=== PATIENT | male | born 1980 | race Caucasian/White ===

== ENCOUNTER 2016-07-08 21:29 | Emergency (ER) | payer OTHER ==
--- NOTE | 2016-07-08 22:56 | ED NURSING NOTES ---
Clinical Report - Nurses [facility] [address] [place] [address] 07/08/2016 21:29 Patient: SJ DONALDSON TRIAGE Triage time 21:40 Jul 08 2016. Acuity: LEVEL 3. Chief Complaint: FALL (fall from sitting on a table). 21:43 07/08/16. SEPSIS SCREEN: Sepsis Screen: negative. Negative (no infection suspected/documented). PO COMA SCORE: [place] Coma Scale: 15- eyes open spontaneously (4); best verbal response- oriented x 4 (5); best motor response- obeys commands (6). --21:43 Esperanza Lawson 21:40 07/08/16. BP: 122/86. HR: 95. RR: 20. O2 saturation: 96% on room air. Temp: 98 F (oral). Pain level now: 11/01. --21:43 Esperanza Lawson. Weight: 113.3 kg stated. Height/Length: 71 inches Per Patient. BMI: 34.9. --21:42 Esperanza Lawson. Medications Tumeric. --21:42 Ida Lawsonh Advil Oral. --21:42 Esperanza Lawson. Allergies No Known Drug Allergy. --21:42 Esperanza Lawson. History Arrived by private vehicle. Historian: patient. Accompanied by family. Location of injuries: left breast. This occurred just prior to arrival. Occurred at home. ( Patient reports he was sitting on a table and fell onto his left rib. He reports a popping noise and pain.). No loss of consciousness. No alteration in mental status or dizziness. 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 PAST MEDICAL HX: Tetanus status: up-to-date. Immunizations: up-to-date. SOCIAL HX: Smoker- current status unknown (Vapes). No alcohol use or drug use. No infectious disease exposure. ABUSE ASSESSMENT: No report of abuse. FALL RISK ASSESSMENT: Fall risk assessment completed. No fall risk identified. NUTRITIONAL RISK ASSESSMENT: The nutritional risk assessment revealed no deficiencies. FUNCTIONAL ASSESSMENT: Functional assessment: no impairments noted. LEARNING NEEDS ASSESSMENT: The learning needs assessment revealed no barriers. SKIN INTEGRITY ASSESSMENT: Skin integrity risk assessment completed. No skin integrity risk identified. --21:43 Esperanza Lawson. ADDITIONAL SURGERIES: Eye innoculated . --21:43 Esperanza Lawson. Interventions ID band on patient. To treatment room. --21:43 Esperanza Lawson. PHYSICAL ASSESSMENT Ambulatory to room. Patient gowned. GENERAL / NEURO / PSYCH: Alert. Oriented X 4. Appears in pain. RESPIRATORY: Respirations not labored. CVS: Left breast area : tenderness. GI / : Abdomen soft and nontender. SKIN: Skin intact. Skin is warm and dry. --21:43 Esperanza Lawson. NURSING PROGRESS NOTES Cold pack applied. Patient gowned. Reassurance given to the patient. Two patient identifiers checked. Call light placed in reach. Side rails up x 1. Bed placed in lowest position. Brakes of bed on. Patient ready for evaluation- chart flagged and ED physician notified. --21:44 Esperanza Lawson 21:59 07/08/2016 Percocet (Oxycodone-Acetaminophen) PO 5/325 mg Tablets 1 tab given. Allergies verified, confirmed 5 rights and sedative warning given to the patient. --21:59 Gogo Mendoza R.N. 22:33 07/08/16. BP: 115/79. HR: 83. RR: 20. O2 saturation: 97% on room air. Pain level now: 5/10. --22:34 Renny Esperanza Patient transported to radiology by wheelchair with tech. (22:35 Jul 08 2016). --22:35 Renny Esperanza. DISPOSITION / DISCHARGE 23:00 07/08/16. Condition at departure: stable. The goals identified in the patient's plan of care were met. No learning barriers present. Discharge instructions provided and reviewed with the patient and spouse. Reviewed warnings (Do not drive while on sedative medications). Reviewed medication(s) side effects, precautions, dosing and course information. Prescription(s) given to the patient. Patient and spouse verbalized understanding. Written instructions provided in Yoruba. ( Follow up with PCP in one week. Ice affected area and take anti-inflammatories as needed.). The patient was discharged by the physician occupational therapist's assistant. He was discharged home and accompanied by spouse. He left the Emergency Department ambulatory and via private vehicle. Spouse driving. FALL RISK ASSESSMENT: Fall risk assessment completed. No fall risk identified. --00:29 Esperanza Lawson 23:00 07/08/16. BP: 122/85. HR: 77. RR: 20. O2 saturation: 98% on room air. Temp: deferred. Pain level now: 11/01. --00:29 Esperanza Lawson. Locked/Released at 07/09/2016 0:29 by Esperanza Lawson,
--- NOTE | 2016-07-08 22:56 | ED CLINICAL REPORT ---
Clinical Report - Physicians/Mid Levels [facility] [address] [place] [address] 07/08/2016 21:29 [id number] Time Seen: 21:49 Jul 08 2016. Arrived- By private vehicle. Historian- patient and family. HISTORY OF PRESENT ILLNESS Chief Complaint: FALL. Location of injuries- (chest). The injury occurred just prior to arrival. Fell. Occurred at home. The patient complains of moderate pain. No blow to the head, neck pain or loss of consciousness. (Patient reports falling forward from a table onto his face and sustaining injury to his left anterior chest.). REVIEW OF SYSTEMS No loss of vision, chest pain or laceration. All systems otherwise negative, except as recorded above. SOCIAL HISTORY Smoker- current status unknown. No alcohol use or drug use. ADDITIONAL NOTES The nursing notes have been reviewed. PHYSICAL EXAM Vital Signs: 07/08/2016 21:40 BP: 122/86. HR: 95. RR: 20. O2 saturation: 96%. Temp: 98 F. Pain level now: 7/10. Appearance: Alert. No acute distress. No backboard or C-collar. Head: Head non-tender. Eyes: Pupils equal, round and reactive to light. No ocular injury. Neck: Non-tender. No vertebral tenderness. Posterior neck: No tenderness or swelling. CVS: Heart sounds normal. Pulses normal. Respiratory: Chest wall: moderate tenderness located in the upper, middle, left and anterior chest. No abrasion. No puncture wound. Breath sounds normal. Chest nontender. No chest wall injury. Abdomen: No visible injury. No abdominal tenderness. The bowel sounds are not abnormal. Back: No tenderness. No tenderness. Neuro: Syd Coma Scale: 15- eyes open spontaneously (4); best verbal response- oriented x 3 (5); best motor response- obeys commands (6). Oriented X 3. LABS, X-RAYS, AND EKG Chest X-ray: No rib fractures. (neg rib series.). PROGRESS AND PROCEDURES Course of Care: abd soft, no signs of contusion/ penetrating injury, cxr neg as reviwed with DR. Paz. No signs of new pneumothorax/ flail multiple rib fx. Pt stable. Mechanical fall. No injury to extremities or neck/ head. Discussed possible small fx/ vs contusion w/ patient. Patient/family counseled. Disposition: Discharged. Condition: good. CLINICAL IMPRESSION Contusion to the left anterior chest. INSTRUCTIONS Apply ice. Prescription Medications: Hydrocodone/APAP 7.5mg / 325mg: take 1 orally every 6 hours as needed for pain. Dispense fifteen (15). No refill. Follow-up: Follow up with your doctor in one week. (Electronically signed by Suni Flower P.A.-C 07/08/2016 22:56)
--- NOTE | 2016-07-08 22:56 | ED NURSING NOTES ---
Clinical Report - Nurses [facility] [address] [place] [address] 07/08/2016 21:29 Patient: SJ DONALDSON TRIAGE Triage time 21:40 Jul 08 2016. Acuity: LEVEL 3. Chief Complaint: FALL (fall from sitting on a table). 21:43 07/08/16. SEPSIS SCREEN: Sepsis Screen: negative. Negative (no infection suspected/documented). PO COMA SCORE: [place] Coma Scale: 15- eyes open spontaneously (4); best verbal response- oriented x 4 (5); best motor response- obeys commands (6). --21:43 Esperanza Lawson 21:40 07/08/16. BP: 122/86. HR: 95. RR: 20. O2 saturation: 96% on room air. Temp: 98 F (oral). Pain level now: 11/01. --21:43 Esperanza Lawson. Weight: 113.3 kg stated. Height/Length: 71 inches Per Patient. BMI: 34.9. --21:42 Esperanza Lawson. Medications Tumeric. --21:42 Ida Lawsonh Advil Oral. --21:42 Esperanza Lawson. Allergies No Known Drug Allergy. --21:42 Esperanza Lawson. History Arrived by private vehicle. Historian: patient. Accompanied by family. Location of injuries: left breast. This occurred just prior to arrival. Occurred at home. ( Patient reports he was sitting on a table and fell onto his left rib. He reports a popping noise and pain.). No loss of consciousness. No alteration in mental status or dizziness. 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 PAST MEDICAL HX: Tetanus status: up-to-date. Immunizations: up-to-date. SOCIAL HX: Smoker- current status unknown (Vapes). No alcohol use or drug use. No infectious disease exposure. ABUSE ASSESSMENT: No report of abuse. FALL RISK ASSESSMENT: Fall risk assessment completed. No fall risk identified. NUTRITIONAL RISK ASSESSMENT: The nutritional risk assessment revealed no deficiencies. FUNCTIONAL ASSESSMENT: Functional assessment: no impairments noted. LEARNING NEEDS ASSESSMENT: The learning needs assessment revealed no barriers. SKIN INTEGRITY ASSESSMENT: Skin integrity risk assessment completed. No skin integrity risk identified. --21:43 Esperanza Lawson. ADDITIONAL SURGERIES: Eye innoculated . --21:43 Esperanza Lawson. Interventions ID band on patient. To treatment room. --21:43 Esperanza Lawson. PHYSICAL ASSESSMENT Ambulatory to room. Patient gowned. GENERAL / NEURO / PSYCH: Alert. Oriented X 4. Appears in pain. RESPIRATORY: Respirations not labored. CVS: Left breast area : tenderness. GI / : Abdomen soft and nontender. SKIN: Skin intact. Skin is warm and dry. --21:43 Esperanza Lawson. NURSING PROGRESS NOTES Cold pack applied. Patient gowned. Reassurance given to the patient. Two patient identifiers checked. Call light placed in reach. Side rails up x 1. Bed placed in lowest position. Brakes of bed on. Patient ready for evaluation- chart flagged and ED physician notified. --21:44 Esperanza Lawson 21:59 07/08/2016 Percocet (Oxycodone-Acetaminophen) PO 5/325 mg Tablets 1 tab given. Allergies verified, confirmed 5 rights and sedative warning given to the patient. --21:59 Gogo Mendoza R.N. 22:33 07/08/16. BP: 115/79. HR: 83. RR: 20. O2 saturation: 97% on room air. Pain level now: 5/10. --22:34 Renny Esperanza Patient transported to radiology by wheelchair with tech. (22:35 Jul 08 2016). --22:35 Renny Esperanza. DISPOSITION / DISCHARGE 23:00 07/08/16. Condition at departure: stable. The goals identified in the patient's plan of care were met. No learning barriers present. Discharge instructions provided and reviewed with the patient and spouse. Reviewed warnings (Do not drive while on sedative medications). Reviewed medication(s) side effects, precautions, dosing and course information. Prescription(s) given to the patient. Patient and spouse verbalized understanding. Written instructions provided in Telugu. ( Follow up with PCP in one week. Ice affected area and take anti-inflammatories as needed.). The patient was discharged by the physician assistant professor of biology. He was discharged home and accompanied by spouse. He left the Emergency Department ambulatory and via private vehicle. Spouse driving. FALL RISK ASSESSMENT: Fall risk assessment completed. No fall risk identified. --00:29 Esperanza Lawson 23:00 07/08/16. BP: 122/85. HR: 77. RR: 20. O2 saturation: 98% on room air. Temp: deferred. Pain level now: 11/01. --00:29 Esperanza Lawson. Locked/Released at 07/09/2016 0:29 by Esperanza Lawson,
--- NOTE | 2016-07-08 22:56 | ED ORDER SUMMARY ---
..... Patient: SJ DONALDSON OrderSheet [facility] VisitID: [id number] [address] [place] [address] 36y, M Registration Date/Time: 07/08/2016 ORDER SHEET Weight: 113.3 kg (stated) Allergies: No Known Drug Allergy GENERAL ORDERS: Ribs Unilat w PA Chest Left Urgent (21:47 07/08/2016 Maddy Deras.A.-C) (Ack 21:48 ALawrence ER Tech1) (22:50 MCampbell) MEDICATION ORDERS: Percocet PO 5/325 mg (HIGH ALERT MEDICATION, NOW) (21:47 07/08/2016 Maddy Deras.A.-C) (Ack 21:49 HSoule) (21:59 KKnebel R.N.) IV FLUIDS: ORDER SHEET NOTES: [Electronically signed by Suni Flower P.A.-C (22:56 07/08/2016)] [Electronically signed by Esperanza Lawson (00:29 07/09/2016)] [Electronically locked/signed by Esperanza Lawson (00:29 07/09/2016)]
--- NOTE | 2016-07-08 22:56 | ED ORDER SUMMARY ---
..... Patient: SJ DONALDSON OrderSheet [facility] VisitID: [id number] [address] [place] [address] 36y, M Registration Date/Time: 07/08/2016 ORDER SHEET Weight: 113.3 kg (stated) Allergies: No Known Drug Allergy GENERAL ORDERS: Ribs Unilat w PA Chest Left Urgent (21:47 07/08/2016 Maddy Deras.A.-C) (Ack 21:48 ALawrence ER Tech1) (22:50 MCampbell) MEDICATION ORDERS: Percocet PO 5/325 mg (HIGH ALERT MEDICATION, NOW) (21:47 07/08/2016 Maddy eDras.A.-C) (Ack 21:49 HSoule) (21:59 KKnebel R.N.) IV FLUIDS: ORDER SHEET NOTES: [Electronically signed by Suni Flower P.A.-C (22:56 07/08/2016)] [Electronically signed by Esperanza Lawson (00:29 07/09/2016)] [Electronically locked/signed by Esperanza Lawson (00:29 07/09/2016)]
--- NOTE | 2016-07-08 22:56 | ED CLINICAL REPORT ---
Clinical Report - Physicians/Mid Levels [facility] [address] [place] [address] 07/08/2016 21:29 [id number] Time Seen: 21:49 Jul 08 2016. Arrived- By private vehicle. Historian- patient and family. HISTORY OF PRESENT ILLNESS Chief Complaint: FALL. Location of injuries- (chest). The injury occurred just prior to arrival. Fell. Occurred at home. The patient complains of moderate pain. No blow to the head, neck pain or loss of consciousness. (Patient reports falling forward from a table onto his face and sustaining injury to his left anterior chest.). REVIEW OF SYSTEMS No loss of vision, chest pain or laceration. All systems otherwise negative, except as recorded above. SOCIAL HISTORY Smoker- current status unknown. No alcohol use or drug use. ADDITIONAL NOTES The nursing notes have been reviewed. PHYSICAL EXAM Vital Signs: 07/08/2016 21:40 BP: 122/86. HR: 95. RR: 20. O2 saturation: 96%. Temp: 98 F. Pain level now: 7/10. Appearance: Alert. No acute distress. No backboard or C-collar. Head: Head non-tender. Eyes: Pupils equal, round and reactive to light. No ocular injury. Neck: Non-tender. No vertebral tenderness. Posterior neck: No tenderness or swelling. CVS: Heart sounds normal. Pulses normal. Respiratory: Chest wall: moderate tenderness located in the upper, middle, left and anterior chest. No abrasion. No puncture wound. Breath sounds normal. Chest nontender. No chest wall injury. Abdomen: No visible injury. No abdominal tenderness. The bowel sounds are not abnormal. Back: No tenderness. No tenderness. Neuro: Syd Coma Scale: 15- eyes open spontaneously (4); best verbal response- oriented x 3 (5); best motor response- obeys commands (6). Oriented X 3. LABS, X-RAYS, AND EKG Chest X-ray: No rib fractures. (neg rib series.). PROGRESS AND PROCEDURES Course of Care: abd soft, no signs of contusion/ penetrating injury, cxr neg as reviwed with DR. Paz. No signs of new pneumothorax/ flail multiple rib fx. Pt stable. Mechanical fall. No injury to extremities or neck/ head. Discussed possible small fx/ vs contusion w/ patient. Patient/family counseled. Disposition: Discharged. Condition: good. CLINICAL IMPRESSION Contusion to the left anterior chest. INSTRUCTIONS Apply ice. Prescription Medications: Hydrocodone/APAP 7.5mg / 325mg: take 1 orally every 6 hours as needed for pain. Dispense fifteen (15). No refill. Follow-up: Follow up with your doctor in one week. (Electronically signed by Suni Flower P.A.-C 07/08/2016 22:56)
--- NOTE | 2016-07-08 23:13 | DIAGNOSTIC IMAGING REPORT ---
PROCEDURE: XR RIBS UNILAT W/PA CHEST-LT INDICATION: TRAUMA/INJURY TECHNIQUE: Three views of the left ribs with single PA view chest. COMPARISON: None. FINDINGS: LEFT RIBS: No fracture or suspicious osseous lesion. CHEST: Lungs are clear. Heart size, mediastinum and pulmonary vessels are normal. Bony thorax is unremarkable. IMPRESSION: 1. Negative chest and left ribs.
--- NOTE | 2016-07-09 00:30 | ED MAR SUMMARY ---
..... Medication Administration Record [facility] [address] [place] [address] Patient: SJ DONALDSON Visit ID: [id number] 36y, M Weight: 113.3 kg Height/Length: 71 in BMI: 34.9 ALLERGIES: No Known Drug Allergy Given 21:59 07/08/2016 Gogo Mendoza R.N. Medication Administered: PERCOCET [PO] (OXYCODONE-ACETAMINOPHEN), Dose: 1 tab 5/325 mg Tablets PO. Medication Ordered: Percocet PO 5/325 mg (HIGH ALERT MEDICATION, NOW).
--- NOTE | 2016-07-09 00:30 | ED MED RECONCILIATION SUMMARY ---
Patient: SJ DONALDSON Medication Reconciliation Report [facility] VisitID: [id number] [address] [place] [address] 36y, M Registration Date/Time: 07/08/2016 Weight: 113.3 kg Height/Length: 71 in. BMI: 34.9 ALLERGIES: No Known Drug Allergy The patient's Home Medications are listed below: THE FOLLOWING MEDICATIONS NEED TO BE RECONCILED: Advil Oral Tumeric The source(s) of the original Home Medication information: Not obtained. The following Medications were given to the patient in the Emergency Department: Percocet [PO] PO 1 tab, administered: 07/08/2016 9:59:00 PM The following Medications were prescribed to the patient: Hydrocodone/APAP 7.5mg / 325mg: take 1 orally every 6 hours as needed for pain. Dispense fifteen (15). No refill. -- Suni Flower, PBryanABryan-C
--- NOTE | 2016-07-09 00:30 | ED MED RECONCILIATION SUMMARY ---
Patient: SJ DONALDSON Medication Reconciliation Report [facility] VisitID: [id number] [address] [place] [address] 36y, M Registration Date/Time: 07/08/2016 Weight: 113.3 kg Height/Length: 71 in. BMI: 34.9 ALLERGIES: No Known Drug Allergy The patient's Home Medications are listed below: THE FOLLOWING MEDICATIONS NEED TO BE RECONCILED: Advil Oral Tumeric The source(s) of the original Home Medication information: Not obtained. The following Medications were given to the patient in the Emergency Department: Percocet [PO] PO 1 tab, administered: 07/08/2016 9:59:00 PM The following Medications were prescribed to the patient: Hydrocodone/APAP 7.5mg / 325mg: take 1 orally every 6 hours as needed for pain. Dispense fifteen (15). No refill. -- Suni Flower, PBryanABryan-C
--- NOTE | 2016-07-09 00:30 | ED MAR SUMMARY ---
..... Medication Administration Record [facility] [address] [place] [address] Patient: SJ DONALDSON Visit ID: [id number] 36y, M Weight: 113.3 kg Height/Length: 71 in BMI: 34.9 ALLERGIES: No Known Drug Allergy Given 21:59 07/08/2016 Gogo Mendoza R.N. Medication Administered: PERCOCET [PO] (OXYCODONE-ACETAMINOPHEN), Dose: 1 tab 5/325 mg Tablets PO. Medication Ordered: Percocet PO 5/325 mg (HIGH ALERT MEDICATION, NOW).
--- NOTE | 2016-07-09 00:30 | ED DISCHARGE INSTRUCTIONS ---
Patient: SJ DONALDSON General Instructions [facility] VisitID: [id number] [place] [address] 36y, M Registration Date/Time: 07/08/2016 Contusion to the left anterior chest. INSTRUCTIONS Apply ice. Prescription Medications: Hydrocodone/APAP 7.5mg / 325mg: take 1 orally every 6 hours as needed for pain. Dispense fifteen (15). No refill. Follow-up: Follow up with your doctor in one week. ADDITIONAL INFORMATION Chest Contusion Acontusion is a bruise to the skin, muscle or ribs. It may cause pain, tenderness, swelling and a purplish discoloration. Contusions take a few days to a few weeks to heal. Home Care: Rest. You should not be doing any heavy lifting or strenuous exertion, or any activity that causes pain. You may use acetaminophen (Tylenol) or ibuprofen (Motrin, Advil) to control pain, unless another pain medicine was prescribed. [ NOTE: If you have chronic liver or kidney disease or ever had a stomach ulcer or GI bleeding, talk with your doctor before using these medicines.] Follow Up with your doctor during the next week or as directed. Get Prompt Medical Attention if any of the following occur: Shortness of breath Increasing chest pain with breathing Dizziness, weakness or fainting New or worsening of abdominal pain Fever of 100.4F (38C) or higher, or as directed by your healthcare provider Hydrocodone Bitartrate, Acetaminophen Oral tablet What is this medicine? ACETAMINOPHEN; HYDROCODONE (a set a STACIA willy fen; rylan droe KOE done) is a pain reliever. It is used to treat mild to moderate pain. How should I use this medicine? Take this medicine by mouth. Swallow it with a full glass of water. Follow the directions on the prescription label. If the medicine upsets your stomach, take the medicine with food or milk. Do not take more than you are told to take. Talk to your plate washer regarding the use of this medicine in children. This medicine is not approved for use in children. What side effects may I notice from receiving this medicine? Side effects that you should report to your doctor or health skin care technician as soon as possible: allergic reactions like skin rash, itching or hives, swelling of the face, lips, or tongue breathing problems confusion feeling faint or lightheaded, falls stomach pain yellowing of the eyes or skin Side effects that usually do not require medical attention (report to your doctor or health skin care technician if they continue or are bothersome): nausea, vomiting stomach upset What may interact with this medicine? alcohol antihistamines isoniazid medicines for depression, anxiety, or psychotic disturbances medicines for sleep muscle relaxants naltrexone narcotic medicines (opiates) for pain phenobarbital ritonavir tramadol What if I miss a dose? If you miss a dose, take it as soon as you can. If it is almost time for your next dose, take only that dose. Do not take double or extra doses. Where should I keep my medicine? Keep out of the reach of children. This medicine can be abused. Keep your medicine in a safe place to protect it from theft. Do not share this medicine with anyone. Selling or giving away this medicine is dangerous and against the law. Store at room temperature between 15 and 30 degrees C (59 and 86 degrees F). Protect from light. Keep container tightly closed. Throw away any unused medicine after the expiration date. Discard unused medicine and used packaging carefully. Pets and children can be harmed if they find used or lost packages. What should I tell my health care provider before I take this medicine? They need to know if you have any of these conditions: brain tumor Crohn's disease, inflammatory bowel disease, or ulcerative colitis drink more than 3 alcohol-containing drinks per day drug abuse or addiction head injury heart or circulation problems kidney disease or problems going to the bathroom liver disease lung disease, asthma, or breathing problems an unusual or allergic reaction to acetaminophen, hydrocodone, other opioid analgesics, other medicines, foods, dyes, or preservatives or trying to get breast-feeding What should I watch for while using this medicine? Tell your doctor or health skin care technician if your pain does not go away, if it gets worse, or if you have new or a different type of pain. You may develop tolerance to the medicine. Tolerance means that you will need a higher dose of the medicine for pain relief. Tolerance is normal and is expected if you take the medicine for a long time. Do not suddenly stop taking your medicine because you may develop a severe reaction. Your body becomes used to the medicine. This does NOT mean you are addicted. Addiction is a behavior related to getting and using a drug for a non-medical reason. If you have pain, you have a medical reason to take pain medicine. Your doctor will tell you how much medicine to take. If your doctor wants you to stop the medicine, the dose will be slowly lowered over time to avoid any side effects. You may get drowsy or dizzy when you first start taking the medicine or change doses. Do not drive, use machinery, or do anything that may be dangerous until you know how the medicine affects you. Stand or sit up slowly. There are different types of narcotic medicines (opiates) for pain. If you take more than one type at the same time, you may have more side effects. Give your health care provider a list of all medicines you use. Your doctor will tell you how much medicine to take. Do not take more medicine than directed. Call emergency for help if you have problems breathing. The medicine will cause constipation. Try to have a bowel movement at least every 2 to 3 days. If you do not have a bowel movement for 3 days, call your doctor or health skin care technician. Too much acetaminophen can be very dangerous. Do not take Tylenol (acetaminophen) or medicines that contain acetaminophen with this medicine. Many non-prescription medicines contain acetaminophen. Always read the labels carefully. You have been given the following additional information: Chest Wall Contusion Hydrocodone Bitartrate, Acetaminophen Oral tablet (Electronically signed by Suni Flower P.A.-C 07/08/2016 22:56)
--- NOTE | 2016-07-09 00:30 | ED DISCHARGE INSTRUCTIONS ---
Patient: SJ DONALDSON General Instructions [facility] VisitID: [id number] [place] [address] 36y, M Registration Date/Time: 07/08/2016 Contusion to the left anterior chest. INSTRUCTIONS Apply ice. Prescription Medications: Hydrocodone/APAP 7.5mg / 325mg: take 1 orally every 6 hours as needed for pain. Dispense fifteen (15). No refill. Follow-up: Follow up with your doctor in one week. ADDITIONAL INFORMATION Chest Contusion Acontusion is a bruise to the skin, muscle or ribs. It may cause pain, tenderness, swelling and a purplish discoloration. Contusions take a few days to a few weeks to heal. Home Care: Rest. You should not be doing any heavy lifting or strenuous exertion, or any activity that causes pain. You may use acetaminophen (Tylenol) or ibuprofen (Motrin, Advil) to control pain, unless another pain medicine was prescribed. [ NOTE: If you have chronic liver or kidney disease or ever had a stomach ulcer or GI bleeding, talk with your doctor before using these medicines.] Follow Up with your doctor during the next week or as directed. Get Prompt Medical Attention if any of the following occur: Shortness of breath Increasing chest pain with breathing Dizziness, weakness or fainting New or worsening of abdominal pain Fever of 100.4F (38C) or higher, or as directed by your healthcare provider Hydrocodone Bitartrate, Acetaminophen Oral tablet What is this medicine? ACETAMINOPHEN; HYDROCODONE (a set a STACIA willy fen; rylan droe KOE done) is a pain reliever. It is used to treat mild to moderate pain. How should I use this medicine? Take this medicine by mouth. Swallow it with a full glass of water. Follow the directions on the prescription label. If the medicine upsets your stomach, take the medicine with food or milk. Do not take more than you are told to take. Talk to your rerecording mixer regarding the use of this medicine in children. This medicine is not approved for use in children. What side effects may I notice from receiving this medicine? Side effects that you should report to your doctor or health clinical manager home care as soon as possible: allergic reactions like skin rash, itching or hives, swelling of the face, lips, or tongue breathing problems confusion feeling faint or lightheaded, falls stomach pain yellowing of the eyes or skin Side effects that usually do not require medical attention (report to your doctor or health clinical manager home care if they continue or are bothersome): nausea, vomiting stomach upset What may interact with this medicine? alcohol antihistamines isoniazid medicines for depression, anxiety, or psychotic disturbances medicines for sleep muscle relaxants naltrexone narcotic medicines (opiates) for pain phenobarbital ritonavir tramadol What if I miss a dose? If you miss a dose, take it as soon as you can. If it is almost time for your next dose, take only that dose. Do not take double or extra doses. Where should I keep my medicine? Keep out of the reach of children. This medicine can be abused. Keep your medicine in a safe place to protect it from theft. Do not share this medicine with anyone. Selling or giving away this medicine is dangerous and against the law. Store at room temperature between 15 and 30 degrees C (59 and 86 degrees F). Protect from light. Keep container tightly closed. Throw away any unused medicine after the expiration date. Discard unused medicine and used packaging carefully. Pets and children can be harmed if they find used or lost packages. What should I tell my health care provider before I take this medicine? They need to know if you have any of these conditions: brain tumor Crohn's disease, inflammatory bowel disease, or ulcerative colitis drink more than 3 alcohol-containing drinks per day drug abuse or addiction head injury heart or circulation problems kidney disease or problems going to the bathroom liver disease lung disease, asthma, or breathing problems an unusual or allergic reaction to acetaminophen, hydrocodone, other opioid analgesics, other medicines, foods, dyes, or preservatives or trying to get breast-feeding What should I watch for while using this medicine? Tell your doctor or health clinical manager home care if your pain does not go away, if it gets worse, or if you have new or a different type of pain. You may develop tolerance to the medicine. Tolerance means that you will need a higher dose of the medicine for pain relief. Tolerance is normal and is expected if you take the medicine for a long time. Do not suddenly stop taking your medicine because you may develop a severe reaction. Your body becomes used to the medicine. This does NOT mean you are addicted. Addiction is a behavior related to getting and using a drug for a non-medical reason. If you have pain, you have a medical reason to take pain medicine. Your doctor will tell you how much medicine to take. If your doctor wants you to stop the medicine, the dose will be slowly lowered over time to avoid any side effects. You may get drowsy or dizzy when you first start taking the medicine or change doses. Do not drive, use machinery, or do anything that may be dangerous until you know how the medicine affects you. Stand or sit up slowly. There are different types of narcotic medicines (opiates) for pain. If you take more than one type at the same time, you may have more side effects. Give your health care provider a list of all medicines you use. Your doctor will tell you how much medicine to take. Do not take more medicine than directed. Call emergency for help if you have problems breathing. The medicine will cause constipation. Try to have a bowel movement at least every 2 to 3 days. If you do not have a bowel movement for 3 days, call your doctor or health clinical manager home care. Too much acetaminophen can be very dangerous. Do not take Tylenol (acetaminophen) or medicines that contain acetaminophen with this medicine. Many non-prescription medicines contain acetaminophen. Always read the labels carefully. You have been given the following additional information: Chest Wall Contusion Hydrocodone Bitartrate, Acetaminophen Oral tablet (Electronically signed by Suni Flower P.A.-C 07/08/2016 22:56)
== END 2016-07-08 23:00 | disposition home or self-care (01) ==
LOC: ED SRH 21:29
DX: S20.02XA Contusion of left breast, initial encounter (principal); W08.XXXA Fall from other furniture, initial encounter; Y93.9 Activity, unspecified; Y92.009 Unspecified place in unspecified non-institutional (private) residence as the place of occurrence of the external cause; Y99.9 Unspecified external cause status